=== PATIENT | male | born 1955 | race Caucasian/White ===

== ENCOUNTER 2020-09-04 23:03 | Inpatient (IN) | payer OTHER ==
[2020-09-05] MEDS ORDERED: VANCOMYCIN IV PER PHARMACY 1 EACH MISC MISCELLANE PRN (00:33)
[2020-09-05] MEDS ORDERED: SODIUM CHLORIDE 0.9% 1,000 ML IV STA (00:33)
[2020-09-05] MEDS ORDERED: LORazepam 2 MG/ML INJ IV STA (00:33)
[2020-09-05] MEDS ORDERED: HYDROmorphone 1 MG/ML 1 ML SYRINGE IVP STA (00:33)
--- NOTE | 2020-09-05 00:38 | ED ---
Lower Extremity Injury HPI - General Chief Complaint: Extremity Injury, Lower Stated Complaint: Wound,Left leg Time Seen by Provider: 09/04/20 23:29 Source: patient, EMS, RN notes reviewed, old records reviewed Mode of arrival: EMS Limitations: no limitations - History of Present Illness Initial Comments: This is a 65-year-old male DF for evaluation patient comes in for evaluation of severe left lower extremity pain and swelling redness and bleeding. Patient states been doing wound care with his left leg for quite some time and is stable infection with blistering to become smelly and malodorous. He denies any other fevers. Patient has history of chronic lower extremity swelling. States this is about as worse as his left like his been. Not currently on antibiotics MD Complaint: other (Left lower extremity swelling pain redness) -: week(s) Injury: Leg: Left, Ankle: Left, Foot: Left Type of Injury: unknown, other (Patient has ulcerations from chronic venous stasis) Place: home Severity: severe Severity scale (1-10): 8 Improves With: nothing Worsens With: nothing Context: other (Bleeding from ulcer) Associated Symptoms: swelling, numbness Treatments Prior to Arrival: bandage - Related Data Allergies Allergy/AdvReac Type Severity Reaction Status Date / Time No Known Allergies Allergy Verified 09/04/20 23:30 Review of Systems ROS Statement: Those systems with pertinent positive or pertinent negative responses have been documented in the HPI. ROS Other: All systems not noted in ROS Statement are negative. Past Medical History Past Medical History: Diabetes Mellitus, Hypertension Additional Past Medical History / Comment(s): cellulitis History of Any Multi-Drug Resistant Organisms: None Reported Additional Past Surgical History / Comment(s): back surgery Past Psychological History: No Psychological Hx Reported Smoking Status: Former smoker Past Alcohol Use History: None Reported Past Drug Use History: None Reported General Exam Limitations: no limitations General appearance: alert, in no apparent distress Head exam: Present: atraumatic, normocephalic, normal inspection Eye exam: Present: normal appearance, PERRL, EOMI. Absent: scleral icterus, conjunctival injection, periorbital swelling ENT exam: Present: normal exam, mucous membranes moist Neck exam: Present: normal inspection. Absent: tenderness, meningismus, lymph adenopathy Respiratory exam: Present: normal lung sounds bilaterally. Absent: respiratory distress, wheezes, rales, rhonchi, stridor Cardiovascular Exam: Present: regular rate, normal rhythm, normal heart sounds. Absent: systolic murmur, diastolic murmur, rubs, gallop, clicks GI/Abdominal exam: Present: soft, normal bowel sounds. Absent: distended, tenderness, guarding, rebound, rigid Extremities exam: Present: normal inspection, full ROM, normal capillary refill, other (Left lower extremity is significant cellulitis with multiple ulcerations, severe erythema, swelling and edema. Significant bleeding on arrival but that has stopped spontaneously). Absent: tenderness, pedal edema, joint swelling, calf tenderness Back exam: Present: normal inspection Neurological exam: Present: alert, oriented X3, CN II-XII intact Psychiatric exam: Present: normal affect, normal mood Skin exam: Present: warm, dry, intact, normal color. Absent: rash Course Vital Signs 09/04/20 09/05/20 23:27 00:30 Temperature 97.9 F Pulse Rate 77 77 Respiratory 18 16 Rate Blood Pressure 134/84 101/64 O2 Sat by Pulse 96 98 Oximetry - Reevaluation(s) Reevaluation #1: 09/05/20 01:41 Medical record is reviewed Reevaluation #2: 09/05/20 01:41 Bleeding remains stopped Reevaluation #3: 09/05/20 01:41 Patient does have new onset atrial fibrillation although we will hold anticoagulation secondary to significant bleeding on arrival - Consultations Consultation #1: Spoke with Dr. Estrada who will admit this patient Medical Decision Making - Medical Decision Making 65 male who presents today to the ER for evaluation of his left lower extremity, edema swelling and redness and erythema bleeding. Patient also found to be in atrial fibrillation. New onset A. fib. Patient will be admitted for evaluation and treatment, antibiotics and wound care - Lab Data Result diagrams: 09/05/20 00:42 09/05/20 00:42 Lab Results 09/05/20 09/05/20 09/05/20 Range/Units 00:42 00:42 00:42 WBC 13.7 H (3.8-10.6) k/uL RBC 3.60 L (4.30-5.90) m/uL Hgb 11.1 L (13.0-17.5) gm/dL Hct 33.4 L (39.0-53.0) % MCV 92.8 (80.0-100.0) fL MCH 30.7 (25.0-35.0) pg MCHC 33.1 (31.0-37.0) g/dL RDW 13.4 (11.5-15.5) % Plt Count 377 (150-450) k/uL MPV 8.1 Neutrophils % 83 % Lymphocytes % 9 % Monocytes % 4 % Eosinophils % 1 % Basophils % 1 % Neutrophils # 11.4 H (1.3-7.7) k/uL Lymphocytes # 1.3 (1.0-4.8) k/uL Monocytes # 0.6 (0-1.0) k/uL Eosinophils # 0.2 (0-0.7) k/uL Basophils # 0.1 (0-0.2) k/uL PT 11.2 (9.0-12.0) sec INR 1.1 (<1.2) APTT 25.4 (22.0-30.0) sec Sodium 143 (137-145) mmol/L Potassium 4.3 (3.5-5.1) mmol/L Chloride 108 H (98-107) mmol/L Carbon Dioxide 22 (22-30) mmol/L Anion Gap 13 mmol/L BUN 25 H (9-20) mg/dL Creatinine 1.81 H (0.66-1.25) mg/dL Est GFR (CKD-EPI)AfAm 45 (>60 ml/min/1.73 sqM) Est GFR (CKD-EPI)NonAf 39 (>60 ml/min/1.73 sqM) Glucose 124 H (74-99) mg/dL Plasma Lactic Acid Ricardo (0.7-2.0) mmol/L Calcium 9.0 (8.4-10.2) mg/dL Phosphorus 5.0 H (2.5-4.5) mg/dL Magnesium 2.4 H (1.6-2.3) mg/dL Total Bilirubin 0.6 (0.2-1.3) mg/dL AST 29 (17-59) U/L ALT 13 (4-49) U/L Alkaline Phosphatase 159 H (38-126) U/L Creatine Kinase 156 (55-170) U/L Troponin I (0.000-0.034) ng/mL Total Protein 7.2 (6.3-8.2) g/dL Albumin 3.9 (3.5-5.0) g/dL 09/05/20 09/05/20 Range/Units 00:42 00:42 WBC (3.8-10.6) k/uL RBC (4.30-5.90) m/uL Hgb (13.0-17.5) gm/dL Hct (39.0-53.0) % MCV (80.0-100.0) fL MCH (25.0-35.0) pg MCHC (31.0-37.0) g/dL RDW (11.5-15.5) % Plt Count (150-450) k/uL MPV Neutrophils % % Lymphocytes % % Monocytes % % Eosinophils % % Basophils % % Neutrophils # (1.3-7.7) k/uL Lymphocytes # (1.0-4.8) k/uL Monocytes # (0-1.0) k/uL Eosinophils # (0-0.7) k/uL Basophils # (0-0.2) k/uL PT (9.0-12.0) sec INR (<1.2) APTT (22.0-30.0) sec Sodium (137-145) mmol/L Potassium (3.5-5.1) mmol/L Chloride (98-107) mmol/L Carbon Dioxide (22-30) mmol/L Anion Gap mmol/L BUN (9-20) mg/dL Creatinine (0.66-1.25) mg/dL Est GFR (CKD-EPI)AfAm (>60 ml/min/1.73 sqM) Est GFR (CKD-EPI)NonAf (>60 ml/min/1.73 sqM) Glucose (74-99) mg/dL Plasma Lactic Acid Ricardo 1.3 (0.7-2.0) mmol/L Calcium (8.4-10.2) mg/dL Phosphorus (2.5-4.5) mg/dL Magnesium (1.6-2.3) mg/dL Total Bilirubin (0.2-1.3) mg/dL AST (17-59) U/L ALT (4-49) U/L Alkaline Phosphatase (38-126) U/L Creatine Kinase (55-170) U/L Troponin I 0.016 (0.000-0.034) ng/mL Total Protein (6.3-8.2) g/dL Albumin (3.5-5.0) g/dL - Radiology Data Radiology results: report reviewed (X-ray left lower extremities negative for air), image reviewed Disposition Clinical Impression: Left leg cellulitis, Leg ulcer, left, New onset atrial fibrillation Disposition: ADMITTED IP TO THIS HOSP Condition: Fair Is patient prescribed a controlled substance at d/c from ED?: No Referrals: None,Stated [Primary Care Provider] - 1-2 days
[2020-09-05 00:51] LABS: Basophils # (A) 0.1 k/uL (0-0.2); Basophils % (A) 1 %; Eosinophils # (A) 0.2 k/uL (0-0.7); Eosinophils % (A) 1 %; HCT 33.4 % (39.0-53.0); HGB 11.1 gm/dL (13.0-17.5); Lymphocytes # (A) 1.3 k/uL (1.0-4.8); Lymphocytes % (A) 9 %; MCH 30.7 pg (25.0-35.0); MCHC 33.1 g/dL (31.0-37.0); MCV 92.8 fL (80.0-100.0); Mean Platelet Volume 8.1; Monocytes # (A) 0.6 k/uL (0-1.0); Monocytes % (A) 4 %; Neutrophils # (A) 11.4 k/uL (1.3-7.7); Neutrophils % (A) 83 %; Platelet Count 377 k/uL (150-450); RDW 13.4 % (11.5-15.5); WBC 13.7 k/uL (3.8-10.6)
[2020-09-05] MEDS ORDERED: VANCOMYCIN 2,250 MG in SODIUM CHLORIDE 0.9% 500 ML 500 ML IVPB ONE (01:00)
[2020-09-05 01:06] LABS: Albumin 3.9 g/dL (3.5-5.0); Magnesium 2.4 mg/dL (1.6-2.3); Potassium 4.3 mmol/L (3.5-5.1); Total Bilirubin 0.6 mg/dL (0.2-1.3); Total Protein 7.2 g/dL (6.3-8.2)
[2020-09-05 01:09] LABS: INR 1.1 (<1.2); Partial Thromboplastin Time 25.4 sec (22.0-30.0); Prothrombin Time 11.2 sec (9.0-12.0)
--- NOTE | 2020-09-05 01:11 | XR ---
EXAMINATION TYPE: XR tibia fibula LT DATE OF EXAM: 09/05/2020 COMPARISON: NONE HISTORY: Wound. Pain. TECHNIQUE: 4 views FINDINGS: There is large Achilles calcaneal spur. There is some mild vascular calcification. I see no fracture nor dislocation. The tibia and fibula appear intact. I see no focal bone destruction. There is spurring on the patella. There is some narrowing of the medial joint space of the left knee. Irre gular soft tissue over the anterior mid tibia. IMPRESSION: Mild soft tissue deformity. No fracture. No sign of osteomyelitis.
[2020-09-05] MEDS ORDERED: NALOXONE 0.4 MG/ML 1 ML VIAL IV PRN (01:37)
[2020-09-05] MEDS ORDERED: ONDANSETRON 4 MG/2 ML VIAL IVP PRN (01:37)
[2020-09-05] MEDS: SODIUM CHLORIDE 0.9% 1,000 ML IV SCH (02:49)
[2020-09-05] MEDS ORDERED: HEPARIN SODIUM 1,000 UN/ML (10ML VL) IV ONE (03:18)
[2020-09-05] MEDS ORDERED: HEPARIN SOD,PORK IN 0.45% NACL 25,000 UNIT in 0.45% NACL 1 250ML.BAG IV SCH (03:30)
[2020-09-05] MEDS: HYDROmorphone 1 MG/ML 1 ML SYRINGE IVP PRN ×4 (04:03→19:07)
--- NOTE | 2020-09-05 09:27 | CONS ---
CONSULTATION HISTORY OF PRESENT ILLNESS: Hesham is a 65-year-old gentleman who is admitted to hospital having had a fall at home. He has a complex and multiple medical problems including hypertension, non-insulin- dependent diabetes. He has bilateral lower extremity cellulitis. He states that he was feeling weak, fatigued and tired and then slipped and fell between his bed and the wall and had to be helped out of that place and that is how he came into the hospital. He denies chest pain or difficulty breathing. There is no history of palpitations, dizziness or syncope. There is no history of focal neurological deficits. There is no prior history of coronary artery disease or congestive heart failure. At the time of my evaluation this morning, he appears comfortable at rest and is free of symptoms. An EKG shows atrial fibrillation with nonspecific ST-T wave changes. Atrial fibrillation is new. I do not have an old EKG on him. PAST MEDICAL HISTORY: Significant for hypertension, diabetes, dyslipidemia. MEDICATIONS: Current medications include K-Dur, Amaryl, Lasix, metformin, Lopid, Catapres, Desyrel, Cozaar, Lexapro, diltiazem. ALLERGIES: No known drug allergies. FAMILY HISTORY: Negative for premature coronary artery disease. SOCIAL HISTORY: Negative for smoking, EtOH abuse, or drug abuse. REVIEW OF SYSTEMS: HEENT is unremarkable. CARDIAC as described above. RESPIRATORY negative. GI negative. ENDOCRINE negative. ALLERGY none. SKIN significant for cellulitis of both lower extremities. MUSCULOSKELETAL significant for arthritis. PSYCHOSOCIAL: Negative. CONSTITUTIONAL significant for fatigue and tiredness. Rest of the system review was performed and is not relevant. PHYSICAL EXAMINATION: On exam, afebrile. Heart rate is 75 beats per minute. Blood pressure is 160/88. Respiratory rate is 18, O2 saturation is 95% on room air. NECK: There is no jugular venous distention. Carotid upstroke is normal. There is no bruit. CHEST exam reveals good air entry bilaterally. HEART exam reveals first and second heart sounds, irregular rhythm. No murmur. ABDOMEN is soft. Examination of EXTREMITIES reveals bilateral cellulitis and pulses are diminished. ASSESSMENT: 1. Persistent atrial fibrillation with controlled ventricular rate. 2. Uncontrolled hypertension. 3. Bilateral lower extremity cellulitis. PLAN: I will obtain a 2D echo. Start the patient on oral anticoagulant and when he is stable, perform a stress test on him. His heart rate is well controlled on the Cardizem that he is on. Please resume his antihypertensives and if necessary we will further optimize therapies. MMODL / IJN: [id number] /
[2020-09-05] MEDS: LORazepam 2 MG/ML INJ IV PRN ×3 (09:44→22:04)
[2020-09-05] MEDS: LOSARTAN 50 MG TAB PO SCH (10:17)
[2020-09-05] MEDS: APIXABAN 5 MG TAB PO SCH ×2 (10:17→21:21)
[2020-09-05] MEDS: FUROSEMIDE 80 MG TAB PO SCH (10:17)
[2020-09-05] MEDS: POTASSIUM CHLORIDE ER 20 MEQ TAB.ER PO SCH (10:17)
[2020-09-05] MEDS: DILTIAZEM ORAL 60 MG TAB PO SCH ×3 (11:04→21:21)
--- NOTE | 2020-09-05 11:53 | ECHOF ---
Referral Reason:new onset afib MEASUREMENTS -------- HEIGHT: 182.9 cm WEIGHT: 149.7 kg BP: 161/88 RVIDd: 3.8 cm (< 3.3) IVSd: 1.7 cm (0.6 - 1.1) LVIDd: 4.6 cm (3.9 - 5.3) LVPWd: 1.5 cm (0.6 - 1.1) IVSs: 2.1 cm LVIDs: 3.2 cm LVPWs: 2.0 cm Ao Diam: 3.2 cm (2.0 - 3.7) AV Cusp: 2.0 cm (1.5 - 2.6) LA Diam: 6.0 cm (2.7 - 3.8) MV EXCURSION: 25.676 mm (> 18.000) MV EF SLOPE: 116 mm/s (70 - 150) EPSS: 0.6 cm RAP: 5.00 mmHg RVSP: 38.41 mmHg FINDINGS -------- This was a technically difficult study with suboptimal views. The left ventricular size is normal. There is moderate concentric left ventricular hypertrophy. O verall left ventricular systolic function is normal with, an EF between 55 - 60 %. The right ventricle is mild to moderately enlarged. The left atrium is markedly dilated. The right atrium was not well visualized. 5.0mg of Lumason was utilized for enhancement of images The aortic valve was not well visualized. The mitral valve was not well visualized. The tricuspid valve was not well visualized. Moderate tricuspid regurgitation present. There is m ild to moderate pulmonary hypertension. The pulmonic valve was not well visualized. The aortic root size is normal. IVC Not well visulized. There is no pericardial effusion. CONCLUSIONS -------- 1. The left ventricular size is normal. 2. There is moderate concentric left ventricular hypertrophy. 3. Overall left ventricular systolic function is normal with, an EF between 55 - 60 %. 4. The right ventricle is mild to moderately enlarged. 5. The left atrium is markedly dilated. 6. The tricuspid valve was not well visualized. 7. Moderate tricuspid regurgitation present. 8. There is mild to moderate pulmonary hypertension. MAINTENANCE AND OPERATIONS SUPERVISOR: Maegan Lyles RDCS
--- NOTE | 2020-09-05 12:31 | P.CONS ---
History of Present Illness - Reason for Consult Consult date: 09/05/20 wound care - History of Present Illness this is a 65-year-old gentleman being seen by the wound care center in the emergency department for nonhealing ulcerations to the left lower extremity. Patient states that the ulcerations have been there for over a year. He has been seen in the wound care center in [place] where he has tried honey alginate, calcium alginate, collagen, and Santyl. Patient states that none of the dressings have worked. He has not been to the wound care center in over a month due to transportation. Patient was also upset that the wound care center has not been utilizing a whirlpool therapy to help with his wounds. Discussed in great length with the patient that whirlpool therapy is not the recommended treatment at this time. Patient has a cluster of 3 ulcerations to the anterior portion of the left lower extremities. No granulation is seen within the wound that a significant amount of slough eschar and nonviable tissue. The P re-wound is excoriated and macerated. With significant redness noted. Patient states that he has significant amount of drainage from the site. patient's past medical history significant for hypertension diabetes, he is a former smoker. Review Of Systems: Constitutional: No fever, no chills, no night sweats. No weight change. No weakness, fatigue or lethargy. No daytime sleepiness. Integumentary:reports wounds, no lesions. No rash or pruritus. No unusual bruising. No change in hair or nails. Physical exam: General Appearance: Alert, cooperative, no distress, appears stated age. Skin: See HPI all other Skin color, texture, tugor normal, no rashes or lesions. Neurologic: Alert oriented x3 Assessment: 1. Nonhealing ulcerations multiple areas of left lower extremity with fat layer exposure 2. Chronic venous hypertension with edema and ulcer 3. Diabetes with skin ulceration plan: 1.apply absorptive silver to all ulcerated areas, saline moistened gauze, ABDs, Triad to the rest of the leg. Wrap with rolled gauze and secure with paper tape. Apply Riley wrap to help with swelling. Changed Friday. 2. Discussed with patient the importance of following up in the wound care center for weekly debridements to assist with healing. Patient verbalized understanding. . Thank you for the consultation any questions please contact the wound care center DNP note has been reviewed and discussed with Dr. Mccartney and the impression and plan of care has been directed as dictated. Past Medical History Past Medical History: Diabetes Mellitus, Hypertension Additional Past Medical History / Comment(s): cellulitis History of Any Multi-Drug Resistant Organisms: None Reported Additional Past Surgical History / Comment(s): back surgery Past Psychological History: No Psychological Hx Reported Smoking Status: Former smoker Past Alcohol Use History: None Reported Past Drug Use History: None Reported Medications and Allergies Home Medications Medication Instructions Recorded Confirmed Type Apixaban [Eliquis] 5 mg PO BID #60 tab 09/05/20 Rx Diltiazem HCl 120 mg PO TID 09/05/20 09/05/20 History Escitalopram [Lexapro] 20 mg PO DAILY 09/05/20 09/05/20 History Furosemide [Lasix] 80 mg PO DAILY 09/05/20 09/05/20 History Gabapentin 600 mg PO TID 09/05/20 09/05/20 History Glimepiride [Amaryl] 2 mg PO BID 09/05/20 09/05/20 History Losartan Potassium [Cozaar] 100 mg PO DAILY 09/05/20 09/05/20 History Potassium Chloride ER [K-Dur 20] 20 meq PO DAILY 09/05/20 09/05/20 History cloNIDine HCL [Catapres] 0.2 mg PO DAILY 09/05/20 09/05/20 History cloNIDine HCL [Catapres] 0.4 mg PO HS 09/05/20 09/05/20 History gemfibroziL [Lopid] 600 mg PO BID 09/05/20 09/05/20 History metFORMIN HCL [metFORMIN HCL ER] 750 mg PO DAILY 09/05/20 09/05/20 History traZODone HCL [Desyrel] 100 mg PO HS 09/05/20 09/05/20 History Allergies Allergy/AdvReac Type Severity Reaction Status Date / Time No Known Allergies Allergy Verified 09/05/20 07:42 Physical Exam Vitals: Vital Signs Temp Pulse Resp BP Pulse Ox 09/05/20 10:18 162/98 09/05/20 09:49 98.9 F 97 22 158/100 94 L 09/05/20 06:33 97.0 F L 75 20 161/88 95 09/05/20 05:00 88 18 159/83 95 09/05/20 00:30 77 16 101/64 98 09/04/20 23:27 97.9 F 77 18 134/84 96 Intake and Output 09/04/20 09/05/20 09/05/20 22:59 06:59 14:59 Other: Weight 149.685 kg Results CBC & Chem 7: 09/05/20 00:42 09/05/20 00:42 Labs: Abnormal Lab Results - Last 24 Hours (Table) 09/05/20 09/05/20 Range/Units 00:42 00:42 WBC 13.7 H (3.8-10.6) k/uL RBC 3.60 L (4.30-5.90) m/uL Hgb 11.1 L (13.0-17.5) gm/dL Hct 33.4 L (39.0-53.0) % Neutrophils # 11.4 H (1.3-7.7) k/uL Chloride 108 H (98-107) mmol/L BUN 25 H (9-20) mg/dL Creatinine 1.81 H (0.66-1.25) mg/dL Glucose 124 H (74-99) mg/dL Phosphorus 5.0 H (2.5-4.5) mg/dL Magnesium 2.4 H (1.6-2.3) mg/dL Alkaline Phosphatase 159 H (38-126) U/L Assessment and Plan (1) Nonhealing ulcer of multiple sites of left lower extremity with fat layer exposed Current Visit: Yes Status: Acute Code(s): L97.922 - NON-PRS CHR ULC UNSP PRT OF L LOW LEG W FAT LAYER EXPOSED SNOMED Code(s): 67039680 (2) Diabetes with skin ulcer Current Visit: Yes Status: Acute Code(s): E11.622 - TYPE 2 DIABETES MELLITUS WITH OTHER SKIN ULCER; L98.499 - NON-PRESSURE CHRONIC ULCER OF SKIN OF SITES W UNSP SEVERITY SNOMED Code(s): 56575177 (3) Chronic venous hypertension (idiopathic) with ulcer of left lower extremity Current Visit: Yes Status: Acute Code(s): I87.312 - CHRONIC VENOUS HYPERTENSION W ULCER OF L LOW EXTREM; L97.929 - NON-PRS CHRONIC ULC UNSP PRT OF L LOW LEG W UNSP SEVERITY SNOMED Code(s): 154572972869278
[2020-09-05] MEDS: HYDROPHILIC CREAM 180 GM TUBE TOPICAL SCH (13:54)
[2020-09-05 17:14] LABS: Glucose,Whole Blood 128 mg/dL (75-99)
[2020-09-05 20:38] LABS: Glucose,Whole Blood 124 mg/dL (75-99)
[2020-09-06] MEDS ORDERED: VANCOMYCIN 2,250 MG in SODIUM CHLORIDE 0.9% 500 ML 500 ML IVPB SCH (02:00)
[2020-09-06] MEDS: SODIUM CHLORIDE 0.9% 1,000 ML IV SCH (02:22)
[2020-09-06] MEDS: HYDROmorphone 1 MG/ML 1 ML SYRINGE IVP PRN ×3 (02:54→21:07)
[2020-09-06 03:04] LABS: Glucose,Whole Blood 101 mg/dL (75-99)
--- NOTE | 2020-09-06 06:33 | HP ---
HISTORY AND PHYSICAL A 65-year-old white male who had a fall home, hypertension, diabetes mellitus, severe bilateral lower extremity cellulitis. Found weak, fatigued, stuck between the bed and the table. History of congestive heart failure, diabetes mellitus, coronary artery disease, had leg infections over 6-8 months. EKG shows atrial fibrillation. He came in with severe cellulitis to bilateral legs, left greater than right with open wounds. PAST MEDICAL HISTORY: Hypertension, diabetes, dyslipidemia, CHF, atrial fibrillation, possible lymphedema. HOME MEDICINES: Desyrel, Catapres, Lopid, metformin, Lasix, Amaryl, K-Dur, Cozaar, Lexapro, diltiazem. ALLERGIES: Negative. FAMILY HISTORY: Negative. SOCIAL HISTORY: No smoking. No alcohol or drugs. SOCIAL HISTORY: Has 3 kids. Lives with his of 31 years. REVIEW OF SYSTEMS: A 14-point review of systems positive for fatigue with weakness, arthritis, cellulitis of the legs. PHYSICAL EXAM: Heart rate 70s, blood pressure 160/88. Respiratory 16-18, O2 95% on room air. Endocrine BMI is over 40. LUNGS: Clear. Cardiovascular S1, S2, possible irregular irregular rhythm. Abdomen is distended due to obesity. Extremities show severe cellulitis and lymphedema type changes bilateral legs, knees down to the feet. ASSESSMENT: 1. Persistent atrial fibrillation with controlled ventricular rate. 2. Uncontrolled hypertension. 3. Severe bilateral lower extremity cellulitis. 4. Rule out congestive heart failure versus lymphedema. Broad-spectrum antibiotics. Infectious Disease consult. Wound Care. Cardiology to see him for possible CHF and heart disease. MMODL / IJN: [id number] /
[2020-09-06 07:22] LABS: Glucose,Whole Blood 87 mg/dL (75-99)
[2020-09-06] MEDS: APIXABAN 5 MG TAB PO SCH ×2 (08:43→20:23)
[2020-09-06] MEDS: FUROSEMIDE 80 MG TAB PO SCH (08:44)
[2020-09-06] MEDS: LOSARTAN 50 MG TAB PO SCH (08:44)
[2020-09-06] MEDS: POTASSIUM CHLORIDE ER 20 MEQ TAB.ER PO SCH (08:44)
[2020-09-06] MEDS: DILTIAZEM ORAL 60 MG TAB PO SCH ×3 (08:44→20:22)
[2020-09-06] MEDS: METOPROLOL SUCCINATE (ER) 50 MG TAB.ER.24H PO SCH (08:53)
[2020-09-06 09:51] LABS: Basophils # (A) 0.06 X 10*3/uL (0.00-0.10); Basophils % (A) 0.5 %; Eosinophils # (A) 0.04 X 10*3/uL (0.04-0.35); Eosinophils % (A) 0.3 %; HCT 28.5 % (39.6-50.0); HGB 9.4 g/dL (13.0-17.0); Lymphocytes # (A) 0.92 X 10*3/uL (0.90-5.00); Lymphocytes % (A) 7.6 %; MCH 31.2 pg (27.0-32.0); MCV 94.7 fL (80.0-97.0); Mean Platelet Volume 10.4 fL (9.5-12.2); Monocytes # (A) 0.85 X 10*3/uL (0.20-1.00); Monocytes % (A) 7.1 %; Neutrophils # (A) 10.12 X 10*3/uL (1.80-7.70); Neutrophils % (A) 84.1 %; Platelet Count 252 X 10*3/uL (140-440); RBC 3.01 X 10*6/uL (4.40-5.60); RDW 13.3 % (11.5-14.5); WBC 12.04 X 10*3/uL (4.50-10.00)
--- NOTE | 2020-09-06 11:38 | P.PN ---
Subjective This is a pleasant 65-year-old male past medical history significant for hypertension, diabetes mellitus and dyslipidemia. 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 He was diagnosed with new onset atrial fibrillation on this admission. He is also being treated for bilateral lower extremity cellulitis. He is seen and examined sitting up in the chair in no acute distress. He denies symptoms of chest pain, shortness of breath, dizziness or palpitations. He continues to be in atrial fibrillation with variable ventricular rates. Heart rates range between 90 and 115. Blood pressure 173/81. Currently maintained on Eliquis 5 mg twice a day, diltiazem 120 mg 3 times a day, Lasix 80 mg daily, losartan 100 mg daily and daily potassium supplementation. Echocardiogram obtained reveals preserved LV systolic function with ejection fraction 55-60%, moderate tricuspid regurgitation and moderate pulmonary hypertension with an RVSP of 38 mmHg. GENERAL: Well-appearing, well-nourished and in no acute distress. Obese. NECK: Supple without JVD or thyromegaly. LUNGS: Breath sounds clear to auscultation bilaterally. Respiration equal and unlabored. No wheezes, rales or rhonchi. HEART: Irregular rate and rhythm without murmurs, rubs or gallops. S1 and S2 heard. EXTREMITIES: Normal range of motion, bilateral lower extremity dressings in place. No clubbing or cyanosis. Peripheral pulses intact. ASSESSMENT Persistent atrial fibrillation with variable ventricular rates Hypertension, uncontrolled Bilateral lower extremity cellulitis Diabetes mellitus Dyslipidemia Morbid obesity, BMI 44 PLAN Continue Eliquis for thromboembolic protection. Add Toprol 50 mg daily to his regimen. Ongoing medical management and treatment of cellulitis. We will follow along as needed, follow-up in the office with Dr. Donaldson upon discharge. Nurse Practitioner note has been reviewed, I agree with a documented findings and plan of care. Patient was seen and examined. Objective - Vital Signs Vital signs: Vital Signs Temp 98.6 F 09/06/20 07:00 Pulse 104 H 09/06/20 07:00 Resp 18 09/06/20 07:00 BP 173/81 09/06/20 07:00 Pulse Ox 93 L 09/06/20 07:00 Intake & Output 09/05/20 09/06/20 09/06/20 18:59 06:59 18:59 Intake Total 236 300 Balance 236 300 Weight 149.685 kg Intake: Oral 236 300 Other: Voiding Method Urinal # Voids 2 - Labs CBC & Chem 7: 09/06/20 05:34 09/05/20 00:42 Labs: Abnormal Lab Results - Last 24 Hours (Table) 09/05/20 09/05/20 09/06/20 Range/Units 17:12 20:37 03:03 WBC (4.50-10.00) X 10*3/uL RBC (4.40-5.60) X 10*6/uL Hgb (13.0-17.0) g/dL Hct (39.6-50.0) % Immature Gran # (0.00-0.04) X 10*3/uL Neutrophils # (1.80-7.70) X 10*3/uL POC Glucose (mg/dL) 128 H 124 H 101 H (75-99) mg/dL 09/06/20 Range/Units 05:34 WBC 12.04 H (4.50-10.00) X 10*3/uL RBC 3.01 L (4.40-5.60) X 10*6/uL Hgb 9.4 L (13.0-17.0) g/dL Hct 28.5 L (39.6-50.0) % Immature Gran # 0.05 H (0.00-0.04) X 10*3/uL Neutrophils # 10.12 H (1.80-7.70) X 10*3/uL POC Glucose (mg/dL) (75-99) mg/dL Microbiology - Last 24 Hours (Table) 09/06/20 02:40 Anaerobic Culture - Preliminary Leg - Left 09/06/20 02:40 Wound Culture - Preliminary Leg - Left 09/05/20 00:42 Blood Culture - Preliminary Blood No Growth after 24 hours 09/05/20 00:42 Blood Culture - Preliminary Blood No Growth after 24 hours
[2020-09-06 11:47] LABS: Glucose,Whole Blood 52 mg/dL (75-99)
[2020-09-06 12:02] LABS: Glucose,Whole Blood 56 mg/dL (75-99)
[2020-09-06 12:30] LABS: Glucose,Whole Blood 103 mg/dL (75-99)
[2020-09-06 13:09] LABS: Albumin 3.7 g/dL (3.80-4.90); Albumin/Globulin Ratio 1.23 (1.60-3.17); Anion Gap 12.1 mmol/L (4.00-12.00); BUN/Creat Ratio 16.25 Ratio (12.00-20.00); Calcium 8.6 mg/dL (8.7-10.3); Carbon Dioxide 24.9 mmol/L (21.6-31.8); Magnesium 2.2 mg/dL (1.5-2.4); Non-African American GFR(CKD) 44.9 (60.0-200.0); Phosphorus 3.9 mg/dL (2.4-5.1); Potassium 3.3 mmol/L (3.5-5.5); Total Bilirubin 0.3 mg/dL (0.3-1.2); Total Protein 6.7 g/dL (6.2-8.2)
[2020-09-06 14:45] VITALS: BMI 44.7
[2020-09-06 16:07] LABS: Hemoglobin A1C 5.5 % (4.0-6.0)
[2020-09-06 17:13] LABS: Glucose,Whole Blood 149 mg/dL (75-99)
[2020-09-06 21:03] LABS: Glucose,Whole Blood 91 mg/dL (75-99)
--- NOTE | 2020-09-06 23:34 | P.CONS ---
History of Present Illness - Reason for Consult Consult date: 09/06/20 Leg cellulitis Requesting physician: Mehul Estrada - Chief Complaint bilateral leg pain and swelling x few days - History of Present Illness Patient is 65-year-old male with a past medical he significant for diabetes mellitus in this patient did have a history of multiple bilateral lower extremity venous ulceration and secondary cellulitis with the patient has for couple of months, patient mention this started after he was pulled out after a fall and apparently he was dragged out of with the patient was stuck leading to multiple sections lower extremity and has been seen and treated at [facility] [place] patient presented to hospital 2 days ago for evaluation of worsening pain to lower extremity with more swelling and redness and some bleeding patient is currently pain to the leg to be more of a sharp in nature intensity is almost 7-8 out of 10 had no radiation patient did have more drainage from his left leg and some foul-smelling on presentation to the hospital the patient was afebrile patient did have white count of 13.7 his creatinine was elevated 1.6 potassium was low 3.3 liver exams are normal he did have wound cultures obtained which are currently pending patient has been empirically treated with Rocephin 1 g every 12 and vancomycin infectious disease was consulted for further management of antibiotic therapy Review of Systems Positive point has been mentioned in the HPI rest of the systems are negative Past Medical History Past Medical History: Diabetes Mellitus, Hypertension Additional Past Medical History / Comment(s): cellulitis History of Any Multi-Drug Resistant Organisms: None Reported Additional Past Surgical History / Comment(s): back surgery Past Anesthesia/Blood Transfusion Reactions: No Reported Reaction Smoking Status: Former smoker Medications and Allergies Home Medications Medication Instructions Recorded Confirmed Type Apixaban [Eliquis] 5 mg PO BID #60 tab 09/05/20 Rx Diltiazem HCl 120 mg PO TID 09/05/20 09/05/20 History Escitalopram [Lexapro] 20 mg PO DAILY 09/05/20 09/05/20 History Furosemide [Lasix] 80 mg PO DAILY 09/05/20 09/05/20 History Gabapentin 600 mg PO TID 09/05/20 09/05/20 History Glimepiride [Amaryl] 2 mg PO BID 09/05/20 09/05/20 History Losartan Potassium [Cozaar] 100 mg PO DAILY 09/05/20 09/05/20 History Potassium Chloride ER [K-Dur 20] 20 meq PO DAILY 09/05/20 09/05/20 History cloNIDine HCL [Catapres] 0.2 mg PO DAILY 09/05/20 09/05/20 History cloNIDine HCL [Catapres] 0.4 mg PO HS 09/05/20 09/05/20 History gemfibroziL [Lopid] 600 mg PO BID 09/05/20 09/05/20 History metFORMIN HCL [metFORMIN HCL ER] 750 mg PO DAILY 09/05/20 09/05/20 History traZODone HCL [Desyrel] 100 mg PO HS 09/05/20 09/05/20 History Allergies Allergy/AdvReac Type Severity Reaction Status Date / Time No Known Allergies Allergy Verified 09/05/20 07:42 Physical Exam Vitals: Vital Signs Temp Pulse Pulse Pulse Pulse Pulse Resp 09/06/20 07:00 98.6 F 104 H 18 09/06/20 02:21 98.3 F 104 H 18 09/06/20 02:00 114 H 18 09/05/20 20:00 18 09/05/20 18:52 98.2 F 91 98 18 09/05/20 16:52 97.7 F 93 16 09/05/20 15:56 98.6 F 99 20 09/05/20 13:05 98.9 F 93 20 09/05/20 10:18 09/05/20 09:49 98.9 F 97 22 BP BP Pulse Ox 09/06/20 07:00 173/81 93 L 09/06/20 02:21 169/90 95 09/06/20 02:00 09/05/20 20:00 09/05/20 18:52 143/82 94 L 09/05/20 16:52 163/88 94 L 09/05/20 15:56 170/96 96 09/05/20 13:05 158/89 97 09/05/20 10:18 162/98 09/05/20 09:49 158/100 94 L Intake and Output 09/05/20 09/06/20 09/06/20 22:59 06:59 14:59 Intake Total 536 Balance 536 Intake: Oral 536 Other: Voiding Method Urinal # Voids 2 Weight 149.685 kg GENERAL DESCRIPTION: Middle-aged male lying in bed, no distress. No tachypnea or accessory muscle of respiration use. HEENT: Shows Pallor , no scleral icterus. Oral mucous membrane is dry. No phar yngeal erythema or thrush NECK: Trachea central, no thyromegaly. LUNGS: Unlabored breathing. Clear to auscultation anteriorly. No wheeze or crackle. HEART: S1, S2, regular rate and rhythm. No loud murmur ABDOMEN: Soft, no tenderness , guarding or rigidity, no organomegaly EXTREMITIES: No edema of feet. SKIN: No rash, no masses palpable. NEUROLOGICAL: The patient is awake, alert, oriented x3, mood and affect normal. Results CBC & Chem 7: 09/06/20 05:34 09/06/20 05:34 Labs: Abnormal Lab Results - Last 24 Hours (Table) 09/05/20 09/05/20 09/06/20 Range/Units 17:12 20:37 03:03 POC Glucose (mg/dL) 128 H 124 H 101 H (75-99) mg/dL Microbiology - Last 24 Hours (Table) 09/05/20 00:42 Blood Culture - Preliminary Blood No Growth after 24 hours 09/05/20 00:42 Blood Culture - Preliminary Blood No Growth after 24 hours Assessment and Plan Assessment: 1-patient presented to hospital with bilateral lower extremity ulceration worse on the left leg and on the right leg with worsening swelling and redness and drainage concern for secondary cellulitis likely from gram-positive skin brent such as strep underlying gram-negative infection less likely but not entirely excluded 2-patient with renal insufficiency and high risk of nephrotoxicity from vancomycin (1) Chronic venous hypertension (idiopathic) with ulcer of left lower extremity Current Visit: Yes Status: Acute Code(s): I87.312 - CHRONIC VENOUS HYPERTENSION W ULCER OF L LOW EXTREM; L97.929 - NON-PRS CHRONIC ULC UNSP PRT OF L LOW LEG W UNSP SEVERITY SNOMED Code(s): 822043744298342 (2) Left leg cellulitis Current Visit: Yes Status: Acute Code(s): L03.116 - CELLULITIS OF LEFT LOWER LIMB SNOMED Code(s): 162885307 Plan: 1-discontinue Rocephin and vancomycin 2-start the patient cefepime 2 g every 8 hours 3-local wound care with Aquacel silver dressing and Riley wrap We will follow on clinical condition and cultures to further adjust medication if needed Thank you for this consultation we will follow the patient along with you Time with Patient: Greater than 30
--- NOTE | 2020-09-07 02:55 | PN ---
PROGRESS NOTE 65-year-old white male, legs are improving. Wrapped with tight Riley wrap. He has them elevated, sitting in a chair. Giving appropriate answers. Cardiovascular S1, S2. Lungs clear. GI soft. GI is distended due to obesity. ASSESSMENT: 1. Right lower leg extremity cellulitis, bandaged. 2. New atrial fibrillation. 3. Hypertension. 4. Possible diastolic heart failure. Continue with IV antibiotics. Wound care, dressing changes. Wait for current treatment. Infectious Disease and Vascular consult. MMODL / IJN: [id number] /
[2020-09-07] MEDS: SODIUM CHLORIDE 0.9% 1,000 ML IV SCH (03:06)
[2020-09-07 06:26] LABS: African American GFR (CKD) 85 (>60 ml/min/1.73 sqM); Anion Gap 8 mmol/L; Blood Urea Nitrogen 22 mg/dL (9-20); Calcium 8.8 mg/dL (8.4-10.2); Carbon Dioxide 30 mmol/L (22-30); Chloride 105 mmol/L (98-107); Glucose 80 mg/dL (74-99); Non-African American GFR(CKD) 74 (>60 ml/min/1.73 sqM); Potassium 3.2 mmol/L (3.5-5.1); Sodium 143 mmol/L (137-145)
[2020-09-07 07:22] LABS: Glucose,Whole Blood 87 mg/dL (75-99)
[2020-09-07] MEDS: LOSARTAN 50 MG TAB PO SCH (07:54)
[2020-09-07] MEDS: POTASSIUM CHLORIDE ER 20 MEQ TAB.ER PO SCH (07:54)
[2020-09-07] MEDS: FUROSEMIDE 80 MG TAB PO SCH (07:54)
[2020-09-07] MEDS: METOPROLOL SUCCINATE (ER) 50 MG TAB.ER.24H PO SCH (07:54)
[2020-09-07] MEDS: APIXABAN 5 MG TAB PO SCH ×2 (07:54→20:01)
[2020-09-07] MEDS: DILTIAZEM ORAL 60 MG TAB PO SCH ×3 (07:54→20:01)
[2020-09-07] MEDS: CEFEPIME 2 GM in SODIUM CHLORIDE 0.9% 100 ML IVPB SCH ×5 (07:55→23:54)
[2020-09-07] MEDS: HYDROmorphone 1 MG/ML 1 ML SYRINGE IVP PRN ×3 (08:01→20:14)
[2020-09-07 11:49] LABS: Glucose,Whole Blood 165 mg/dL (75-99)
[2020-09-07] MEDS: HYDROPHILIC CREAM 180 GM TUBE TOPICAL SCH (14:46)
[2020-09-07] MEDS ORDERED: HYDROmorphone 1 MG/ML 1 ML SYRINGE IVP STA (17:11)
[2020-09-07 17:38] LABS: Glucose,Whole Blood 119 mg/dL (75-99)
--- NOTE | 2020-09-07 18:13 | PN ---
PROGRESS NOTE DATE OF SERVICE: 09/07/2020 REASON FOR FOLLOWUP: Bilateral lower extremity venostasis ulcer with secondary cellulitis. INTERVAL HISTORY: Patient is currently afebrile. Patient is breathing comfortably. The patient did mention overall pain and discomfort to the leg has improved. No chest pain, shortness of breath or cough. No abdominal pain and no diarrhea. PHYSICAL EXAMINATION: Blood pressure 197/94 with a pulse of 86, temperature 98.0, she is 98% on room air. General description patient is a middle-aged male up in the chair in no distress. Respiratory system: Unlabored breathing clear to auscultation anteriorly. Heart S1, S2. Regular rate and rhythm. Abdomen is soft, no tenderness. LABS: BUN of 22, creatinine 1.07. DIAGNOSTIC IMPRESSION AND PLAN: Patient with bilateral lower extremity venostasis ulcer with secondary cellulitis. Culture showing Staph aureus and Tereza. Patient covered with cefepime to continue while waiting for the culture to finalize. Local care to continue with Aquacel Silver dressing and close outpatient followup. MMODL / IJN: [id number] /
[2020-09-07 20:44] LABS: Glucose,Whole Blood 189 mg/dL (75-99)
[2020-09-08] MEDS: HYDROmorphone 1 MG/ML 1 ML SYRINGE IVP PRN ×6 (00:02→21:57)
[2020-09-08] MEDS: SODIUM CHLORIDE 0.9% 1,000 ML IV SCH (03:31)
--- NOTE | 2020-09-08 06:41 | PN ---
PROGRESS NOTE A 65-year-old white male admitted with right and left lower extremity cellulitis. Waiting for wound cultures. New onset atrial fibrillation. Continue with rate control. Cardiology consult. Infectious Disease consult. Vascular consult. Cardiovascular S1-S2. Lungs clear. GI soft. Hematology negative Homans. Legs are wrapped in Riley wraps. ASSESSMENT: Leg cellulitis with open wounds of the legs. Wait for wound cultures. Continue broad- spectrum antibiotics. Treat atrial fibrillation and respiratory distress. Diuretics. MMODL / IJN: [id number] /
[2020-09-08 07:47] LABS: Glucose,Whole Blood 133 mg/dL (75-99)
[2020-09-08] MEDS: CEFEPIME 2 GM in SODIUM CHLORIDE 0.9% 100 ML IVPB SCH ×2 (08:14→17:53)
[2020-09-08] MEDS: APIXABAN 5 MG TAB PO SCH ×2 (08:15→21:29)
[2020-09-08] MEDS: DILTIAZEM ORAL 60 MG TAB PO SCH ×3 (08:16→21:29)
[2020-09-08] MEDS: FUROSEMIDE 80 MG TAB PO SCH (08:16)
[2020-09-08] MEDS: METOPROLOL SUCCINATE (ER) 50 MG TAB.ER.24H PO SCH (08:17)
[2020-09-08] MEDS: LOSARTAN 50 MG TAB PO SCH (08:17)
[2020-09-08] MEDS: POTASSIUM CHLORIDE ER 20 MEQ TAB.ER PO SCH (08:17)
[2020-09-08] MEDS: HYDROPHILIC CREAM 180 GM TUBE TOPICAL SCH (08:17)
[2020-09-08 11:21] LABS: Glucose,Whole Blood 131 mg/dL (75-99)
[2020-09-08 17:52] LABS: Glucose,Whole Blood 142 mg/dL (75-99)
--- NOTE | 2020-09-08 17:52 | PN ---
PROGRESS NOTE DATE OF SERVICE: 09/08/2020 REASON FOR FOLLOWUP: Bilateral lower extremity possible cellulitis. INTERVAL HISTORY: Patient is afebrile. The patient is breathing comfortably. Denies having any chest pain, shortness of breath or cough or any worsening pain to bilateral lower extremities. PHYSICAL EXAMINATION: Blood pressure is 172/86, pulse of 69, temperature 98.3. He is 98% on room air. General description is a middle-aged male up in the chair in no distress. Respiratory system: Unlabored breathing, clear to auscultation anteriorly. Heart S1, S2. Regular rate and rhythm. Abdomen soft, no tenderness. Legs are currently wrapped up. No obvious drainage on the dressing. DIAGNOSTIC IMPRESSION AND PLAN: Patient with bilateral lower extremity venostasis ulcer with secondary cellulitis, culture with Staph aureus, possible MSSA. The patient is covered with cefepime. Local care to continue with dry Aquacel dressing and continue supportive care. MMODL / IJN: [id number] /
[2020-09-08 20:14] LABS: Glucose,Whole Blood 237 mg/dL (75-99)
[2020-09-09] MEDS: CEFEPIME 2 GM in SODIUM CHLORIDE 0.9% 100 ML IVPB SCH ×3 (00:45→15:50)
[2020-09-09] MEDS: SODIUM CHLORIDE 0.9% 1,000 ML IV SCH (00:47)
[2020-09-09] MEDS: HYDROmorphone 1 MG/ML 1 ML SYRINGE IVP PRN ×5 (02:02→21:03)
[2020-09-09 06:58] LABS: Glucose,Whole Blood 136 mg/dL (75-99)
--- NOTE | 2020-09-09 07:02 | PN ---
PROGRESS NOTE A 65-year-old white male who remains on broad-spectrum antibiotics, cefepime, for his severe leg infection for which wound care has been set up. He is on medicine for atrial fibrillation with rapid ventricular response as well as CHF. He is on Lasix 80 mg daily, Eliquis for atrial fibrillation. Psych fair mood and affect. Neurologic alert orient x3. Cardiovascular S1, S2. Lungs clear. GI soft. Extremities with open wounds to the left leg from the knee down to the foot. Continue current treatments. Prognosis guarded. Await for Vascular and infectious Disease. MMODL / IJN: [id number] /
[2020-09-09] MEDS: LOSARTAN 50 MG TAB PO SCH (07:45)
[2020-09-09] MEDS: POTASSIUM CHLORIDE ER 20 MEQ TAB.ER PO SCH (07:45)
[2020-09-09] MEDS: APIXABAN 5 MG TAB PO SCH ×2 (07:46→21:04)
[2020-09-09] MEDS: METOPROLOL SUCCINATE (ER) 50 MG TAB.ER.24H PO SCH (07:46)
[2020-09-09] MEDS: FUROSEMIDE 80 MG TAB PO SCH (07:46)
[2020-09-09] MEDS: DILTIAZEM ORAL 60 MG TAB PO SCH ×3 (07:46→21:12)
[2020-09-09] MEDS: HYDROPHILIC CREAM 180 GM TUBE TOPICAL SCH (10:39)
[2020-09-09 11:41] LABS: Glucose,Whole Blood 160 mg/dL (75-99)
[2020-09-09 17:19] LABS: Glucose,Whole Blood 131 mg/dL (75-99)
[2020-09-09 21:09] LABS: Glucose,Whole Blood 142 mg/dL (75-99)
--- NOTE | 2020-09-09 21:51 | PN ---
PROGRESS NOTE DATE OF SERVICE: 09/09/2020 REASON FOR FOLLOWUP: Bilateral lower extremity venostasis ulcer and cellulitis. INTERVAL HISTORY: Patient is afebrile. The patient is breathing comfortably. Denies having any chest pain, shortness of breath, cough, abdominal pain. Complaining of pain to the lower extremities. No worsening. No abdominal pain. No diarrhea. PHYSICAL EXAMINATION: Blood pressure 153/80 with a pulse of 84, temperature 98.2. He is 93% on room air. General description is a middle-aged male up in the chair in no distress. Respiratory system: Unlabored breathing. Clear to auscultation anteriorly. Heart S1, S2. Regular rate and rhythm. Abdomen soft, no tenderness. The patient did have bilateral extremity multiple ulceration especially to the left leg with some slough tissue. LABS: Wound culture with MSSA. DIAGNOSTIC IMPRESSION AND PLAN: Patient with bilateral lower extremity venous stasis ulcer secondary to cellulitis, local care will be switched over to [facility]. Continue cefazolin and continue supportive care. MMODL / IJN: [id number] /
[2020-09-10] MEDS: CEFEPIME 2 GM in SODIUM CHLORIDE 0.9% 100 ML IVPB SCH ×3 (00:09→17:16)
[2020-09-10] MEDS: HYDROmorphone 1 MG/ML 1 ML SYRINGE IVP PRN ×4 (01:10→20:26)
[2020-09-10] MEDS: SODIUM CHLORIDE 0.9% 1,000 ML IV SCH (01:13)
[2020-09-10] MEDS: LOSARTAN 50 MG TAB PO SCH (07:47)
[2020-09-10] MEDS: DILTIAZEM ORAL 60 MG TAB PO SCH ×3 (07:47→20:27)
[2020-09-10] MEDS: APIXABAN 5 MG TAB PO SCH ×2 (07:47→20:28)
[2020-09-10] MEDS: METOPROLOL SUCCINATE (ER) 50 MG TAB.ER.24H PO SCH (07:47)
[2020-09-10] MEDS: POTASSIUM CHLORIDE ER 20 MEQ TAB.ER PO SCH (07:47)
[2020-09-10] MEDS: FUROSEMIDE 80 MG TAB PO SCH (07:47)
[2020-09-10] MEDS: HYDROPHILIC CREAM 180 GM TUBE TOPICAL SCH (08:01)
[2020-09-10 08:13] LABS: Glucose,Whole Blood 146 mg/dL (75-99)
--- NOTE | 2020-09-10 08:13 | PN ---
PROGRESS NOTE A 65-year-old white male, right lower extremity cellulitis, atrial fibrillation, congestive heart failure. Continue with Lasix and going to increase Lasix to 80 in the morning and 40 in the afternoon due to increased edema in the legs. Remains on broad- spectrum antibiotics for cellulitis of the legs. Vital signs stable, afebrile. Cardiovascular S1, S2. Lungs clear. GI soft. Hematology negative Homans. Psych fair mood and affect. Neurologic alert and orient x3. ASSESSMENT: 1. Right lower extremity cellulitis. 2. Atrial fibrillation. 3. Ulcerations of the lower legs. Prognosis is guarded. Follow up in the next 24 to 48 hours. Possible discharge which antibiotics are found, possible IV home PICC line antibiotics. MMODL / IJN: [id number] /
[2020-09-10 09:53] LABS: Basophils # (A) 0.12 X 10*3/uL (0.00-0.10); Eosinophils # (A) 0.26 X 10*3/uL (0.04-0.35); Eosinophils % (A) 2.2 %; HCT 29.3 % (39.6-50.0); HGB 9.4 g/dL (13.0-17.0); Lymphocytes # (A) 1.49 X 10*3/uL (0.90-5.00); Lymphocytes % (A) 12.4 %; MCH 30.2 pg (27.0-32.0); MCHC 32.1 g/dL (32.0-37.0); MCV 94.2 fL (80.0-97.0); Monocytes % (A) 6.7 %; Neutrophils # (A) 9.25 X 10*3/uL (1.80-7.70); Neutrophils % (A) 77.2 %; Platelet Count 350 X 10*3/uL (140-440); RBC 3.11 X 10*6/uL (4.40-5.60); RDW 13.3 % (11.5-14.5); WBC 11.98 X 10*3/uL (4.50-10.00)
[2020-09-10 11:11] LABS: African American GFR (CKD) 91.8 (60.0-200.0); Albumin 3.8 g/dL (3.80-4.90); Albumin/Globulin Ratio 1.15 (1.60-3.17); Anion Gap 10.7 mmol/L (4.00-12.00); Calcium 9.2 mg/dL (8.7-10.3); Carbon Dioxide 28.3 mmol/L (21.6-31.8); Globulin 3.3 g/dL (1.6-3.3); Non-African American GFR(CKD) 79.2 (60.0-200.0); Potassium 3.6 mmol/L (3.5-5.5); Total Bilirubin 0.3 mg/dL (0.2-1.2); Total Protein 7.1 g/dL (6.2-8.2)
[2020-09-10 12:13] LABS: Glucose,Whole Blood 270 mg/dL (75-99)
--- NOTE | 2020-09-10 16:21 | P.PN ---
Progress Note - Text Progress Note Date: 09/10/20 Presenting complaint: Bilateral lower extremity wounds Interval history: Admitted with bilateral lower extremity venostasis ulcers and cellulitis. September 10: Sitting up in a chair. Oral intake good. Had a bowel movement yesterday. Some dressing on the lower extremity. Pain control. No fever no chills. Review of systems: Was done for constitutional, cardiovascular, GI, pulmonary. relevant finding as above Active Medications Apixaban (Apixaban 5 Mg Tab) 5 mg PO BID [facility]; Protocol Last Admin: 09/10/20 07:47 Dose: 5 mg Documented by: Diltiazem HCl (Diltiazem Oral 60 Mg Tab) 120 mg PO TID [facility] Last Admin: 09/10/20 07:47 Dose: 120 mg Documented by: Furosemide (Furosemide 80 Mg Tab) 80 mg PO DAILY [facility] Last Admin: 09/10/20 07:47 Dose: 80 mg Documented by: Hydromorphone HCl (Hydromorphone 1 Mg/Ml 1 Ml Syringe) 1 mg IVP Q4HR PRN PRN Reason: Pain Last Admin: 09/10/20 14:49 Dose: 1 mg Documented by: Sodium Chloride (Saline 0.9%) 1,000 mls @ 20 mls/hr IV .Q24H [facility] Last Admin: 09/10/20 01:13 Dose: 20 mls/hr Documented by: Cefepime HCl 2 gm/ Sodium (Chloride) 100 mls @ 25 mls/hr IVPB Q8HR [facility] Last Admin: 09/10/20 07:46 Dose: 25 mls/hr Documented by: Lorazepam (Lorazepam 2 Mg/Ml Inj) 1 mg IV Q4HR PRN PRN Reason: Anxiety Last Admin: 09/05/20 22:04 Dose: 1 mg Documented by: Losartan Potassium (Losartan 50 Mg Tab) 100 mg PO DAILY [facility] Last Admin: 09/10/20 07:47 Dose: 100 mg Documented by: Metoprolol Succinate (Metoprolol Succinate (Er) 50 Mg Tab.Er.24h) 50 mg PO DAILY [facility] Last Admin: 09/10/20 07:47 Dose: 50 mg Documented by: Multi-Ingred Cream/Lotion/Oil/Oint (Hydrophilic Cream 180 Gm Tube) 1 applic TOPICAL DAILY [facility]; Protocol Last Admin: 09/10/20 08:01 Dose: 1 applic Documented by: Naloxone HCl (Naloxone 0.4 Mg/Ml 1 Ml Vial) 0.2 mg IV Q2M PRN PRN Reason: Opioid Reversal Ondansetron HCl (Ondansetron 4 Mg/2 Ml Vial) 4 mg IVP Q8HR PRN PRN Reason: Nausea And Vomiting Potassium Chloride (Potassium Chloride Er 20 Meq Tab.Er) 20 meq PO DAILY [facility] Last Admin: 09/10/20 07:47 Dose: 20 meq Documented by: On examination: VITAL SIGNS: [98.1, 98, 18, 159/97, 98% on room air] GENERAL APPEARANCE: BMI 44.8, sitting up in a chair, comfortable HEENT: Normal external appearance of nose and ear. Oral cavity normal EYES: Pupils equal. Conjunctiva normal. NECK: JVD not raised. Mass not palpable. RESPIRATORY: Respiratory effort normal. Lungs clear to auscultation. CARDIOVASCULAR: First and second sounds normal. No murmur EXTREMITIES: Bilateral lower extremity dressing ABDOMEN: Soft. Liver and spleen not palpable. No tenderness. No mass palpable. PSYCHIATRY: Alert and oriented x3. Mood and affect normal. INVESTIGATIONS, reviewed in the clinical context: WBC 11.9 hemoglobin 9.4 platelets 350 potassium 3.6 creatinine 1.0 Wound culture: Tereza albicans. Staph aureus. MSSA. 2-D echocardiogram: Moderate concentric LVH. EF 55-60%. Moderate tricuspid regurgitation. Assessment and plan: -Bilateral lower extremity venostasis ulcers and secondary cellulitis Local wound care with medi honey IV Ancef. Per Dr. Mims -Diabetes mellitus type 2, oral hypoglycemic Resume metformin and glyburide. Follow Accu-Cheks -Essential hypertension, uncontrolled Cozaar. Increase Toprol-XL. 100 mg daily -Peripheral neuropathy On Neurontin -Moderate tricuspid regurgitation Follow clinically Resume glyburide/metformin. Increase Toprol-XL to 100 mg daily. Antibiotics per Dr. Parekh. Discussed with the patient.
[2020-09-10] MEDS: metFORMIN 500 MG TAB PO SCH (17:20)
[2020-09-10 17:37] LABS: Glucose,Whole Blood 120 mg/dL (75-99)
[2020-09-10 20:12] LABS: Glucose,Whole Blood 191 mg/dL (75-99)
[2020-09-10] MEDS: GLIMEPIRIDE 2 MG TAB PO SCH (20:27)
[2020-09-10] MEDS: traZODone HCL 100 MG TAB PO SCH (20:27)
[2020-09-10] MEDS ORDERED: METOPROLOL TARTRATE 50 MG TAB PO SCH (21:00)
--- NOTE | 2020-09-10 22:23 | PN ---
PROGRESS NOTE DATE OF SERVICE: 09/10/2020 REASON FOR FOLLOWUP: Bilateral lower extremity ulcers and cellulitis, MSSA. INTERVAL HISTORY: Patient is afebrile. The patient is breathing comfortably. The patient denies having any chest pain, shortness or cough. No pain over the left leg. PHYSICAL EXAMINATION: Blood pressure 159/97, pulse of 90, temperature 98.1. He is 98% on room air. GENERAL DESCRIPTION: The patient is a middle-aged male up in the bed in no distress. RESPIRATORY SYSTEM: Unlabored breathing, clear to auscultation anteriorly. HEART: S1, S2. Regular rate and rhythm. EXTREMITIES: Bilateral legs are currently wrapped up. No obvious drainage on the dressing. LABS: Hemoglobin 9.4, white count 11.9, BUN of 20, creatinine 1.0. DIAGNOSTIC IMPRESSION AND PLAN: Patient with bilateral lower extremity ulcers and cellulitis. Cultures with MSSA, Tereza. Antibiotic adjusted to cefazolin 2 grams q.8 hours. Local care with [facility]. Has been advised to follow up with the Wound Care versus usp placement. [facility] Finishing therapy with oral antibiotics. Continue supportive care. MMODL / IJN: [id number] /
[2020-09-11] MEDS: HYDROmorphone 1 MG/ML 1 ML SYRINGE IVP PRN ×5 (00:33→21:24)
[2020-09-11] MEDS: SODIUM CHLORIDE 0.9% 1,000 ML IV SCH (00:34)
[2020-09-11] MEDS: LOSARTAN 50 MG TAB PO SCH (07:22)
[2020-09-11] MEDS: APIXABAN 5 MG TAB PO SCH ×2 (07:24→21:24)
[2020-09-11] MEDS: POTASSIUM CHLORIDE ER 20 MEQ TAB.ER PO SCH (07:24)
[2020-09-11] MEDS: GLIMEPIRIDE 2 MG TAB PO SCH ×2 (07:24→21:24)
[2020-09-11] MEDS: METOPROLOL SUCCINATE (ER) 100 MG TAB.ER.24H PO SCH (07:24)
[2020-09-11] MEDS: DILTIAZEM ORAL 60 MG TAB PO SCH ×3 (07:25→21:23)
[2020-09-11] MEDS: ESCITALOPRAM 20 MG TAB PO SCH (07:25)
[2020-09-11] MEDS: FUROSEMIDE 80 MG TAB PO SCH (07:25)
[2020-09-11] MEDS: HYDROPHILIC CREAM 180 GM TUBE TOPICAL SCH (07:31)
[2020-09-11 07:37] LABS: Glucose,Whole Blood 101 mg/dL (75-99)
[2020-09-11] MEDS ORDERED: metFORMIN 500 MG TAB PO SCH (09:00)
[2020-09-11 11:48] LABS: Glucose,Whole Blood 163 mg/dL (75-99)
--- NOTE | 2020-09-11 13:17 | CDI ---
Documentation Clarification Form Date: 09/11/2020 12:53:20 PM From: Rody Mcfadden RN, CCDS Admit Date: 09/08/2020 02:22:00 PM Patient Name: Hesham Lloyd Visit Number: [id number] Discharge Date: ATTENTION: The Clinical Documentation Specialists (CDI) and [facility] Coding Staff appreciate your assistance in clarifying documentation. Please respond to the clarification below the line at the bottom and electronically sign. The CDI & [facility] Coding staff will review the response and follow-up if needed. Please note: Queries are made part of the Legal Health Record. If you have any questions, please contact the author of this message via ITS. Dr. Mehul Estrada Your patient has the documented diagnosis of unspecified CHF per H/P. 09/07 assessment has possible diastolic heart failure. Additional information regarding the acuity of CHF is requested. History/Risk Factors: Hypertension, Diabetes Mellitus, Atrial Fibrillation, CHF, Venous stasis ulcer left leg Clinical Indicators: 65-year-old male present for evaluation of severe cellulitis to bilateral legs left greater than right with open wounds. He has a history of congestive heart failure per H/P with ongoing treatment. 09/08 admit VS/Pulse OX: 187/97 88 17 98.9 97% RA 09/06 BNP: 1400 09/05 Echocardiogram Results: Overall left ventricular systolic function is normal with, an EF between 55-60% Treatment: Lasix 80 MB PO Daily Toprol XL 100 MG PO Daily Cozaar 100MG PO Daily In your professional opinion, can you please clarify the acuity of Diastolic CHF if known? [ ] Chronic Diastolic Heart Failure (preserved EF) [ ] Acute Diastolic Heart Failure (preserved EF) [ ] Other, please specify [ ] Unable to determine (Template Last Revised: March 2020) MTDD
[2020-09-11] MEDS: metFORMIN 500 MG TAB PO SCH ×2 (13:29→21:24)
[2020-09-11 17:24] LABS: Glucose,Whole Blood 111 mg/dL (75-99)
--- NOTE | 2020-09-11 17:57 | PN ---
PROGRESS NOTE DATE OF SERVICE: 09/11/2020 REASON FOR FOLLOWUP: Bilateral lower extremity venous stasis ulcer and cellulitis. INTERVAL HISTORY: Patient is afebrile. The patient is breathing comfortably. The patient denies having any chest pain. No shortness of breath or cough. No abdominal pain or any worsening pain to the lower extremity wound area. PHYSICAL EXAMINATION: Blood pressure 118/70 with a pulse of 85, temperature 98.2 she is 96% on room air. GENERAL DESCRIPTION: Is an elderly middle-aged male up in the chair in no distress. RESPIRATORY SYSTEM: Unlabored breathing, clear to auscultation anteriorly. HEART: S1, S2. Regular rate and rhythm. ABDOMEN: Soft, no tenderness. EXTREMITIES: Bilateral legs are currently wrapped up. No obvious drainage on the dressing. LABS: No new labs have been obtained today. DIAGNOSTIC IMPRESSION AND PLAN: Patient with bilateral lower extremity venous stasis ulcer. There is concern for cellulitis, left greater than right. The patient, at this time, is covered with cefazolin. Finish with the oral Keflex, local wound care with Medihoney and a close outpatient followup. MMODL / IJN: [id number] /
[2020-09-11 20:56] LABS: Glucose,Whole Blood 145 mg/dL (75-99)
[2020-09-11] MEDS: traZODone HCL 100 MG TAB PO SCH (21:24)
[2020-09-12] MEDS: HYDROmorphone 1 MG/ML 1 ML SYRINGE IVP PRN ×4 (01:30→20:52)
[2020-09-12] MEDS: SODIUM CHLORIDE 0.9% 1,000 ML IV SCH (05:34)
--- NOTE | 2020-09-12 06:24 | PN ---
PROGRESS NOTE A 65-year-old white male who remains on cefazolin, Cardizem. Pseudomonas wounds on the legs will need IV antibiotics through the PICC line for outpatient antibiotics for prolonged period of time. Cardiovascular: S1, S2. Lungs clear. GI soft. Extremities bilateral legs are wrapped up. No obvious drainage. ASSESSMENT: Cellulitis of the legs, Pseudomonas in nature. IV PICC line will be needed for outpatient antibiotics. Lasix was increased to 80 in the morning and 40 in the afternoon. Possible discharge home soon to rehab center. MMODL / IJN: [id number] /
[2020-09-12 07:28] LABS: Glucose,Whole Blood 82 mg/dL (75-99)
[2020-09-12] MEDS: DILTIAZEM ORAL 60 MG TAB PO SCH ×3 (08:22→20:53)
[2020-09-12] MEDS: APIXABAN 5 MG TAB PO SCH ×2 (08:22→20:52)
[2020-09-12] MEDS: GLIMEPIRIDE 2 MG TAB PO SCH ×2 (08:22→22:06)
[2020-09-12] MEDS: LOSARTAN 50 MG TAB PO SCH (08:22)
[2020-09-12] MEDS: FUROSEMIDE 80 MG TAB PO SCH (08:22)
[2020-09-12] MEDS: ESCITALOPRAM 20 MG TAB PO SCH (08:23)
[2020-09-12] MEDS: METOPROLOL SUCCINATE (ER) 100 MG TAB.ER.24H PO SCH (08:23)
[2020-09-12] MEDS: POTASSIUM CHLORIDE ER 20 MEQ TAB.ER PO SCH (08:23)
[2020-09-12] MEDS: metFORMIN 500 MG TAB PO SCH ×2 (08:23→20:53)
[2020-09-12 10:31] LABS: Basophils # (A) 0.11 X 10*3/uL (0.00-0.10); Basophils % (A) 0.9 %; Eosinophils # (A) 0.26 X 10*3/uL (0.04-0.35); Eosinophils % (A) 2.2 %; HCT 28.4 % (39.6-50.0); HGB 8.9 g/dL (13.0-17.0); Lymphocytes # (A) 1.29 X 10*3/uL (0.90-5.00); Lymphocytes % (A) 10.8 %; MCHC 31.3 g/dL (32.0-37.0); MCV 95.6 fL (80.0-97.0); Monocytes # (A) 0.98 X 10*3/uL (0.20-1.00); Monocytes % (A) 8.2 %; Neutrophils # (A) 9.26 X 10*3/uL (1.80-7.70); Neutrophils % (A) 77.3 %; Platelet Count 323 X 10*3/uL (140-440); RBC 2.97 X 10*6/uL (4.40-5.60); RDW 13.7 % (11.5-14.5); WBC 11.97 X 10*3/uL (4.50-10.00)
[2020-09-12 11:51] LABS: African American GFR (CKD) 56.2 (60.0-200.0); Albumin 3.8 g/dL (3.80-4.90); Albumin/Globulin Ratio 1.23 (1.60-3.17); Anion Gap 8.5 mmol/L (4.00-12.00); BUN/Creat Ratio 21.33 Ratio (12.00-20.00); Carbon Dioxide 30.5 mmol/L (21.6-31.8); Globulin 3.1 g/dL (1.6-3.3); Non-African American GFR(CKD) 48.5 (60.0-200.0); Potassium 3.6 mmol/L (3.5-5.5); Total Bilirubin 0.4 mg/dL (0.2-1.2); Total Protein 6.9 g/dL (6.2-8.2)
[2020-09-12 12:49] LABS: Glucose,Whole Blood 109 mg/dL (75-99)
[2020-09-12] MEDS: HYDROPHILIC CREAM 180 GM TUBE TOPICAL SCH (13:19)
--- NOTE | 2020-09-12 16:04 | CDI ---
Documentation Clarification Form Date: 09/11/2020 12:53:00 PM From: Rody Mcfadden RN, CCDS Admit Date: 09/08/2020 02:22:00 PM Patient Name: Hesham Lloyd Visit Number: [id number] Discharge Date: ATTENTION: The Clinical Documentation Specialists (CDI) and [facility] Coding Staff appreciate your assistance in clarifying documentation. Please respond to the clarification below the line at the bottom and electronically sign. The CDI & [facility] Coding staff will review the response and follow-up if needed. Please note: Queries are made part of the Legal Health Record. If you have any questions, please contact the author of this message via ITS. Dr. Mehul Estrada Your patient has the documented diagnosis of unspecified CHF per H/P. 09/07 assessment has possible diastolic heart failure. Additional information regarding the acuity of CHF is requested. History/Risk Factors: Hypertension, Diabetes Mellitus, Atrial Fibrillation, CHF, Venous stasis ulcer left leg Clinical Indicators: 65-year-old male present for evaluation of severe cellulitis to bilateral legs left greater than right with open wounds. He has a history of congestive heart failure per H/P with ongoing treatment. 09/08 admit VS/Pulse OX: 187/97 88 17 98.9 97% RA 09/06 BNP: 1400 09/05 Echocardiogram Results: Overall left ventricular systolic function is normal with, an EF between 55-60% Treatment: Lasix 80 MB PO Daily Toprol XL 100 MG PO Daily Cozaar 100MG PO Daily In your professional opinion, can you please clarify the acuity of Diastolic CHF if known? [ ] Chronic Diastolic Heart Failure (preserved EF) [ ] Acute on Chronic Diastolic Heart Failure (preserved EF) [ ] Other, please specify [ ] Unable to determine (Template Last Revised: March 2020) MTDD
[2020-09-12 17:24] LABS: Glucose,Whole Blood 126 mg/dL (75-99)
[2020-09-12 20:47] LABS: Glucose,Whole Blood 119 mg/dL (75-99)
[2020-09-12] MEDS: traZODone HCL 100 MG TAB PO SCH (22:06)
[2020-09-13] MEDS ORDERED: HYDROmorphone 1 MG/ML 1 ML SYRINGE ONE (01:32)
--- NOTE | 2020-09-13 05:05 | PN ---
PROGRESS NOTE DATE OF SERVICE: 09/12/2020 REASON FOR FOLLOWUP: Bilateral lower extremity ulcer and cellulitis. INTERVAL HISTORY: Patient is afebrile, has been breathing comfortably. Denies having any chest pain, shortness of breath, cough, abdominal pain, no worsening pain to the lower extremity. PHYSICAL EXAMINATION: Blood pressure 158/78 with a pulse of 82, temperature 98. He is 97% on room air. General description is a middle-aged male up in the chair in no distress. Respiratory system: Unlabored breathing. Clear to auscultation anteriorly. Heart S1, S2. Regular rate and rhythm. Abdomen soft, no tenderness. Bilateral legs especially left leg has significant slough tissue, redness improved. LABS: Hemoglobin 8.8, white count 11.9, BUN of 32, creatinine is 1.5. DIAGNOSTIC IMPRESSION AND PLAN: Patient with bilateral lower extremity ulcers and cellulitis, left greater than right. Patient clinically responding to cefazolin. Finish therapy with oral Keflex, local wound care with Medihoney and close outpatient followup. MMODL / IJN: [id number] /
--- NOTE | 2020-09-13 05:05 | PN ---
PROGRESS NOTE 65-year-old white male, right lower extremity cellulitis. New onset atrial fibrillation. Started on Eliquis 2.5 b.i.d., is going to be started on oral antibiotics on discharge and wound care will have to be done at the half-way. Cardiovascular S1, S2. Lungs clear. Extremities show 2 to 3+ pedal edema with open wounds to the legs bilaterally. Cultures have been done. Antibiotics have been advised per Dr. Mims. To follow up tomorrow on discharge to go to the rehab center for poor ambulation, diastolic heart failure, cellulitis of the legs. Prognosis guarded. MMODL / IJN: [id number] /
[2020-09-13] MEDS: SODIUM CHLORIDE 0.9% 1,000 ML IV SCH (06:16)
[2020-09-13 07:12] LABS: Glucose,Whole Blood 90 mg/dL (75-99)
[2020-09-13] MEDS: LOSARTAN 50 MG TAB PO SCH (08:36)
[2020-09-13] MEDS: DILTIAZEM ORAL 60 MG TAB PO SCH ×3 (08:36→21:14)
[2020-09-13] MEDS: GLIMEPIRIDE 2 MG TAB PO SCH ×2 (08:37→21:14)
[2020-09-13] MEDS: ESCITALOPRAM 20 MG TAB PO SCH (08:37)
[2020-09-13] MEDS: metFORMIN 500 MG TAB PO SCH ×2 (08:37→21:14)
[2020-09-13] MEDS: APIXABAN 5 MG TAB PO SCH ×2 (08:37→21:14)
[2020-09-13] MEDS: METOPROLOL SUCCINATE (ER) 100 MG TAB.ER.24H PO SCH (08:37)
[2020-09-13] MEDS: FUROSEMIDE 80 MG TAB PO SCH (08:37)
[2020-09-13] MEDS: POTASSIUM CHLORIDE ER 20 MEQ TAB.ER PO SCH (08:37)
[2020-09-13] MEDS: HYDROPHILIC CREAM 180 GM TUBE TOPICAL SCH (08:38)
[2020-09-13 11:33] LABS: Glucose,Whole Blood 138 mg/dL (75-99)
[2020-09-13] MEDS: HYDROmorphone 1 MG/ML 1 ML SYRINGE IVP PRN ×2 (15:41→20:23)
--- NOTE | 2020-09-13 16:54 | PN ---
PROGRESS NOTE DATE OF SERVICE: 09/13/2020 REASON FOR FOLLOWUP: Bilateral lower extremity cellulitis. INTERVAL HISTORY: Patient is afebrile. The patient is breathing comfortably. The patient denies having any chest pain, shortness of breath or cough. No abdominal pain or worsening pain to the lower extremity. PHYSICAL EXAMINATION: Blood pressure 149/72 with a pulse of 83, temperature 98.3. She is 96% on room air. General description is a middle-aged male lying in no distress. Respiratory system: Unlabored breathing. Clear to auscultation anteriorly. Heart S1, S2. Regular rate and rhythm. Abdomen: Soft, no tenderness. Legs are currently wrapped up. No obvious drainage on the dressing. LABS: No new labs have been obtained today. DIAGNOSTIC IMPRESSION AND PLAN: Patient with bilateral lower extremity ulcers and cellulitis, left greater than right. Patient local culture with MSSA. Plan is for Keflex oral for 2 weeks. Local wound care with [facility]. Close outpatient followup. Questions and concerns were answered. MMODL / IJN: [id number] /
[2020-09-13 17:11] LABS: Glucose,Whole Blood 95 mg/dL (75-99)
[2020-09-13 20:14] LABS: Glucose,Whole Blood 189 mg/dL (75-99)
--- NOTE | 2020-09-13 21:10 | DS ---
DISCHARGE SUMMARY HOSPITAL COURSE: A 65-year-old white male who was admitted with bilateral lower extremity cellulitis and acute diastolic heart failure and cellulitis. He responded to IV cefazolin and local wound care. Will be sending him to the rehab center with [facility], changes to his ( ), as well as oral Keflex. He was seen by Infectious Disease and vascular surgery. He was also seen by Cardiology for diastolic heart failure. He will need to elevate his legs and take pressure off his legs at the rehab center. Continue with physical therapy as he is not really moving around. MEDICATIONS: He will take a [place] 7.5 mg daily with dressing changes only. Keflex 500 mg q.i.d. for 10 days. Toprol-XL 100 mg daily, Triad cream topically daily, Eliquis 5 mg b.i.d. for atrial fibrillation, ( ) prophylaxis for strokes, potassium, K-Dur 20 mEq daily, Amaryl 2 mg b.i.d. for diabetes mellitus, Glucophage XR 750 daily for diabetes, Lexapro 20 mg daily for depression, diltiazem 120 mg t.i.d., Lasix 80 mg daily, Desyrel 100 mg at night, Cozaar 100 mg daily. CONDITION: Stable. PROGNOSIS: Guarded. Ambulate as tolerated. Should get physical therapy at the rehab center. Diet will be as tolerated. Condition stable. Prognosis guarded. MMODL / IJN: [id number] /
[2020-09-13] MEDS: traZODone HCL 100 MG TAB PO SCH (21:14)
[2020-09-14] MEDS: HYDROmorphone 1 MG/ML 1 ML SYRINGE IVP PRN ×2 (01:16→08:40)
[2020-09-14] MEDS: SODIUM CHLORIDE 0.9% 1,000 ML IV SCH (01:45)
[2020-09-14 07:21] LABS: Glucose,Whole Blood 78 mg/dL (75-99)
[2020-09-14 08:06] VITALS: BP 146/84; PULSE 82; RESP 18; TEMP 98
[2020-09-14] MEDS: POTASSIUM CHLORIDE ER 20 MEQ TAB.ER PO SCH (08:35)
[2020-09-14] MEDS: LOSARTAN 50 MG TAB PO SCH (08:35)
[2020-09-14] MEDS: metFORMIN 500 MG TAB PO SCH (08:35)
[2020-09-14] MEDS: APIXABAN 5 MG TAB PO SCH (08:35)
[2020-09-14] MEDS: DILTIAZEM ORAL 60 MG TAB PO SCH (08:36)
[2020-09-14] MEDS: HYDROPHILIC CREAM 180 GM TUBE TOPICAL SCH (08:37)
[2020-09-14] MEDS: FUROSEMIDE 80 MG TAB PO SCH (08:37)
[2020-09-14] MEDS: GLIMEPIRIDE 2 MG TAB PO SCH (08:37)
[2020-09-14] MEDS: ESCITALOPRAM 20 MG TAB PO SCH (08:37)
[2020-09-14] MEDS: METOPROLOL SUCCINATE (ER) 100 MG TAB.ER.24H PO SCH (08:38)
--- NOTE | 2020-09-18 13:47 | CDI ---
Documentation Clarification Form Date: 09/18/2020 01:34:30 PM From: Bairon Read Admit Date: 09/08/2020 02:22:00 PM Patient Name: Hesham Lloyd Visit Number: [id number] Discharge Date: 09/14/2020 10:39:00 AM ATTENTION: The Clinical Documentation Specialists (CDI) and [facility] Coding Staff appreciate your assistance in clarifying documentation. Please respond to the clarification below the line at the bottom and electronically sign. The CDI & [facility] Coding staff will review the response and follow-up if needed. Please note: Queries are made part of the Legal Health Record. If you have any questions, please contact the author of this message via ITS. Dr. Mehul Estrada Diabetes is documented in consult 09/05 along with skin ulcer. Bilateral LE cellulitis is documented in the discharge summary. Clarification is needed as to wether the DM is linked to the cellulitis as coding does not provide an automatic link. This would affect the principle diagnosis. History/Risk Factors: DM with chronic skin ulcers Clinical Indicators: cellulitis Treatment: Abx for cellulitis Please clarify: [ ] Cellulitis linked to the diabetes [ ] Cellulitis not linked to the diabetes [ ] Other, please specify [ ] Unable to Determine MTDD
--- NOTE | 2020-09-20 15:19 | PN ---
PROGRESS NOTE ADDENDUM: Please add cellulitis linked to diabetes. MMODL / IJN: [id number] /
== END 2020-09-14 10:39 | DRG 637 ==
LOC: EC 23:03 → 1SOBS 09-05 01:39 → 6NMEDSUR 09-05 11:43 → OBSVTOIN 09-08 14:22 → UNDODISIN 09-14 10:39
PROVIDERS: ADMIT Family Medicine; ATTEND Family Medicine
DX: E11.622 Type 2 diabetes mellitus with other skin ulcer (principal); I50.31 Acute diastolic (congestive) heart failure; L03.116 Cellulitis of left lower limb; I87.312 Chronic venous hypertension (idiopathic) with ulcer of left lower extremity; L97.929 Non-pressure chronic ulcer of unspecified part of left lower leg with unspecified severity; I48.19 Other persistent atrial fibrillation; Z68.41 Body mass index [BMI] 40.0-44.9, adult; L97.919 Non-pressure chronic ulcer of unspecified part of right lower leg with unspecified severity; L03.115 Cellulitis of right lower limb; Z87.891 Personal history of nicotine dependence; I25.10 Atherosclerotic heart disease of native coronary artery without angina pectoris; E78.5 Hyperlipidemia, unspecified; I11.0 Hypertensive heart disease with heart failure; Z79.01 Long term (current) use of anticoagulants; Z79.84 Long term (current) use of oral hypoglycemic drugs; E66.01 Morbid (severe) obesity due to excess calories; E11.42 Type 2 diabetes mellitus with diabetic polyneuropathy; I07.1 Rheumatic tricuspid insufficiency; I27.20 Pulmonary hypertension, unspecified; I87.8 Other specified disorders of veins; N28.9 Disorder of kidney and ureter, unspecified; Z79.899 Other long term (current) drug therapy; W01.0XXA Fall on same level from slipping, tripping and stumbling without subsequent striking against object, initial encounter; Y92.009 Unspecified place in unspecified non-institutional (private) residence as the place of occurrence of the external cause
CPT/HCPCS: 80048; 80053; 82550; 83036; 83605; 83735; 83880; 84100; 84484; 85025; 85610; 85730; 87040; 87070; 87075; 87077; 87186; 87205; 93005; 93306; 96365; 96375; 99284